=== PATIENT | male | born 1960 | race Caucasian/White ===

== ENCOUNTER 2022-11-09 10:19 | Emergency (ER) | payer MEDICAID, SELFPAY ==
[2022-11-09] VITALS (7 sets, daily range): BP systolic 134–153; BP diastolic 84–99; PULSE 72–80; RESP 16–20; TEMP 36.4; O2SAT 97–100
--- NOTE | 2022-11-09 10:45 | ED.GENADULT ---
HPI - General Adult General Chief complaint: Urogenital-Male Stated complaint: ABDOMINAL PAIN X3D Time Seen by Provider: 11/09/22 10:27 History of Present Illness HPI narrative: 62-year-old male presented the ED for evaluation of difficulty urinating. Patient states over the last 4 days he has had decreased urine output. Patient states he has not had follow-up with a physician for the last 40 years. Patient complains of difficulty urinating with suprapubic abdominal pain. Patient denies any chest pain shortness of breath nausea vomiting diarrhea. Related Data Allergies Allergy/AdvReac Type Severity Reaction Status Date / Time No Known Allergies Allergy Verified 11/09/22 10:29 Review of Systems Review of Systems: All systems reviewed & are unremarkable except as noted in HPI and below Exam Narrative: APPEARANCE: Well appearing, no pain, no distress, well-nourished. HEAD: normocephalic, atraumatic. EYES: PERRLA/EOMI, conjunctivae clear. NOSE: Normal no drainage EARS:TMS clear with good light reflex. THROAT: Pharynx clear, no exudate. NECK: Supple. No adenopathy, no masses. RESPIRATORY: Airway patent, respirations nonlabored. Clear to auscultation bilaterally, no rales, rhonchi, wheezing. CARDIOVASCULAR: Regular rate and rhythm without murmurs rubs or gallops. ABDOMINAL: Suprapubic tenderness to palpation MUSCULOSKELETAL: Moves all extremities. Strength/ROM intact, No edema, No calf tenderness. NEURO: Alert. Cranial nerves II through XII intact. Grossly intact SKIN: Warm, dry. Normal Color Course Course Emergency Course: 62-year-old male to the ED for evaluation of decreased ability to urinate and increased upper pubic abdominal pressure. Patient drained approximately 2 L of urine from his indwelling Alvarado catheter. No evidence of urinary tract infection. Patient did have a creatinine of 4.4. Patient was strongly encouraged to stay for further work-up but has declined. Patient and family were aware of the risks of leaving prior to completing his medical work-up. Patient will be provided numbers to call for follow-up with urology and with a primary care physician. Patient will be started on Flomax. Patient was signed out AMA. Patient was provided follow-up with medicine and with urology. Patient was encouraged to return to the emergency department to complete his medical work-up. Vital Signs Vital signs: Vital Signs Temperature 97.6 F 11/09/22 10:28 Pulse Rate 80 11/09/22 10:28 Respiratory Rate 16 11/09/22 10:28 Blood Pressure 134/90 11/09/22 10:28 Pulse Oximetry 99 11/09/22 10:28 Oxygen Delivery Room Air 11/09/22 10:28 Temperature 97.6 F 11/09/22 10:28 Pulse Rate 72 11/09/22 12:18 Respiratory Rate 20 11/09/22 12:18 Blood Pressure 151/84 H 11/09/22 12:18 Pulse Oximetry 97 11/09/22 12:18 Oxygen Delivery Room Air 11/09/22 10:28 Medical Decision Making Vital Signs Vital Signs: Vital Signs Temperature 97.6 F 11/09/22 10:28 Pulse Rate 80 11/09/22 10:28 Respiratory Rate 16 11/09/22 10:28 Blood Pressure 134/90 11/09/22 10:28 Pulse Oximetry 99 11/09/22 10:28 Oxygen Delivery Room Air 11/09/22 10:28 Temperature 97.6 F 11/09/22 10:28 Pulse Rate 72 11/09/22 12:18 Respiratory Rate 20 11/09/22 12:18 Blood Pressure 151/84 H 11/09/22 12:18 Pulse Oximetry 97 11/09/22 12:18 Oxygen Delivery Room Air 11/09/22 10:28 Lab Data 11/09/22 10:44 11/09/22 10:44 Labs: Lab Results 11/09/22 11/09/22 Range/Units 10:43 10:44 WBC 12.2 H (4.5-10.0) K/mm3 RBC 4.75 (4.6-6.20) M/mm3 Hgb 15.5 (14.0-18.0) g/dL Hct 44.5 (42.0-52.0) % MCV 93.7 (80-100) fl MCH 32.6 (26-34) pg MCHC 34.8 (32-36) g/dl RDW 12.7 (11.5-14.5) % Plt Count 236 (150-375) k/mm3 MPV 9.3 (7.4-10.4) fl Immature Gran % (Auto) 0.3 (0-0.5) % Neut % (Auto) 77.7 H (45.5-73.1) % Lymph % (Aut
[2022-11-09 10:52] LABS: Basophils Percent Auto 0.3 % (0.2-1.2); Eosinophils Absolute Auto 0.3 K/mm3 (0-0.3); Eosinophils Percent Auto 2.1 % (0-4.4); Hematocrit 44.5 % (42.0-52.0); Hemoglobin 15.5 g/dL (14.0-18.0); Immature Granulocyte Absolute 0.04 K/mm3 (0.00-0.031); Immature Granulocyte Percent A 0.3 % (0-0.5); Lymphocytes Absolute Auto 1.47 K/mm3 (0.9-3.2); Lymphocytes Percent Auto 12.1 % (18.3-44.2); Mean Corpuscular HGB Conc 34.8 g/dl (32-36); Mean Corpuscular Hemoglobin 32.6 pg (26-34); Mean Corpuscular Volume 93.7 fl (80-100); Mean Platelet Volume 9.3 fl (7.4-10.4); Monocytes Absolute Auto 0.9 K/mm3 (0.1-0.6); Monocytes Percent Auto 7.5 % (2.6-8.5); Neutrophils Absolute Auto 9.5 K/mm3 (1.3-6.7); Neutrophils Percent Auto 77.7 % (45.5-73.1); Platelet Count Result 236 k/mm3 (150-375); Red Blood Count 4.75 M/mm3 (4.6-6.20); Red Cell Distribution Width 12.7 % (11.5-14.5); White Blood Count 12.2 K/mm3 (4.5-10.0)
[2022-11-09 10:53] LABS: Appearance Urine Clear (Clear); Bilirubin Urine Negative (Negative); Blood Urine Negative (Negative); Color Urine Yellow (Yellow); Glucose Urine UA Negative (Negative); Ketones Urine Negative (Negative); Leukocyte Esterase Ur Negative LEU/UL (Negative); Nitrate Urine Negative (Negative); Protein Urine Negative (Negative); Urobilinogen Urine 0.2 mg/dL (<2.0); pH Urine 5.5 (5.0-9.0)
[2022-11-09 10:54] LABS: Add Urine Microscopic? NO
[2022-11-09 11:06] LABS: Alanine Aminotransferase 20 U/L (6-50); Albumin Level 4.7 g/dL (3.5-5.1); Alkaline Phosphatase 78 U/L (38-126); Anion Gap 14 mmol/L (8-16); Aspartate Amino Transferase 22 U/L (17-59); Bilirubin,Total 0.9 mg/dL (0.2-1.3); Blood Urea Nitrogen 51 mg/dL (9-20); Calcium 9.3 mg/dL (8.4-10.2); Carbon Dioxide 23 mmol/L (22-30); Chloride 103 mmol/L (98-107); Estimated CRCL calculation 17 ml/min; Estimated Glomerular Filt Rate 14; Glucose 100 mg/dL (65-110); Lipase 63 U/L (23-300); Potassium 4.1 mmol/L (3.4-5.0); Sodium 140 mmol/L (137-145)
[2022-11-09] MEDS: LIDOCAINE HCL 2% GEL UROJET 10 ML PKG (11:14)
--- NOTE | 2022-11-09 12:09 | PC.NURSE ---
This RN made Dr. Patton aware of urine output. Pt resting comfortably in bed at this time. No further requests.
[2022-11-09] MEDS: TAMSULOSIN HCL 0.4 MG CAPSULE PO (12:32)
== END 2022-11-09 12:50 | disposition left against medical advice (07) ==
PROVIDERS: Emergency Provider Emergency Medicine
DX: N17.9 Acute kidney failure, unspecified (principal); R33.9 Retention of urine, unspecified
CPT/HCPCS: 36415; 51702; 80053; 81003; 83690; 85025; 99283; A9270

== ENCOUNTER → 2022-12-16 15:14 | Emergency (ER) | payer OTHER, SELFPAY | END | disposition left against medical advice (07) | LOC: ANHED 15:38 | DX: Z53.21 Procedure and treatment not carried out due to patient leaving prior to being seen by health care provider (principal) | CPT/HCPCS: 99199 ==

== ENCOUNTER 2022-12-24 14:20 | Emergency (ER) | payer OTHER, SELFPAY ==
[2022-12-24] VITALS (11 sets, daily range): BP systolic 143–181; BP diastolic 75–105; PULSE 60–83; RESP 16–18; TEMP 36.7; O2SAT 91–100
--- NOTE | ~2022-12-24 | CT_ITS ---
EXAMINATION: CT abdomen pelvis w con INDICATION: Abdominal pain TECHNIQUE: Computed tomographic images of the abdomen and pelvis were obtained after the administrati on of 100 cc of Omnipaque 350 intravenous contrast. The dose-length product (DLP) was 651.29 mGy-cm. Automated exposure control and iterative reconstruction technique were employed. COMPARISON: None available FINDINGS: Minimal dependent atelectasis is present in the lung bases. The heart size is normal. There is a small sliding hiatal hernia. Punctate calcifications in an otherwise normal spleen likely repre sent healed granulomatous disease. The liver, pancreas, gallbladder, and adrenal glands are normal. H ypoattenuating lesions in the kidneys, measuring up to 4 mm on the left, are too small to characteriz e but likely represent cysts. The bladder is decompressed by Alvarado catheter. There is a small amount of hyperattenuating material in the bladder near the left ureterovesicular junction. A small volume o f ascites is present at the pelvis. No pathologically enlarged abdominal or pelvic lymph nodes are id entified. No free intraperitoneal gas or evidence of bowel obstruction. Colonic diverticulosis is pre sent without evidence of diverticulitis. There is wall thickening of the urinary bladder with mild bowers rrounding fat stranding. There is moderate lumbar spondylosis. IMPRESSION: 1. Wall thickening of the urinary bladder with surrounding fat stranding suggestive of cystitis. 2. Hyperattenuating material in the bladder near the left ureterovesicular junction which could refle ct small bladder stones. Reviewed, dictated and finalized at location L. IMPRESSION: 1. Wall thickening of the urinary bladder with surrounding fat stranding sugges tive of cystitis. 2. Hyperattenuating material in the bladder near the left ureterovesicular junc tion which could reflect small bladder stones.
--- NOTE | 2022-12-24 14:45 | PC.NURSE ---
Pt came in with catheter in place, states it has been in place for 1 month because he has worthless doctors . Catheter was removed in ED intact and a new one was placed.
[2022-12-24 15:09] LABS: Appearance Urine Turbid (Clear); Bacteria Urine 4+ /hpf; Bilirubin Urine Negative (Negative); Blood Urine 3+ (Negative); Color Urine Yellow (Yellow); Glucose Urine UA Negative (Negative); Ketones Urine Negative (Negative); Leukocyte Esterase Ur 2+ LEU/UL (Negative); Nitrate Urine Positive (Negative); Non Pathogenic Casts 0-2; Protein Urine 1+ mg/dL (Negative); RBC Urine 51-100 /hpf (0-2); Specific Grav Ur 1.023 (1.001-1.035); Squamous Epithelial Cell Urine None seen /hpf (Few); WBC Urine 51-100 /hpf
[2022-12-24 15:17] LABS: Add Urine Microscopic? YES
[2022-12-24 15:24] LABS: Basophils Percent Auto 0.3 % (0.2-1.2); Eosinophils Absolute Auto 0.1 K/mm3 (0-0.3); Eosinophils Percent Auto 0.5 % (0-4.4); Hematocrit 43.3 % (42.0-52.0); Immature Granulocyte Absolute 0.04 K/mm3 (0.00-0.031); Immature Granulocyte Percent A 0.4 % (0-0.5); Lymphocytes Absolute Auto 1.19 K/mm3 (0.9-3.2); Lymphocytes Percent Auto 10.8 % (18.3-44.2); Mean Corpuscular HGB Conc 34.6 g/dl (32-36); Mean Corpuscular Hemoglobin 32.1 pg (26-34); Mean Corpuscular Volume 92.7 fl (80-100); Mean Platelet Volume 9.4 fl (7.4-10.4); Monocytes Absolute Auto 0.6 K/mm3 (0.1-0.6); Monocytes Percent Auto 5.4 % (2.6-8.5); Neutrophils Absolute Auto 9.1 K/mm3 (1.3-6.7); Neutrophils Percent Auto 82.6 % (45.5-73.1); Platelet Count Result 201 k/mm3 (150-375); Red Blood Count 4.67 M/mm3 (4.6-6.20); Red Cell Distribution Width 12.9 % (11.5-14.5)
[2022-12-24 15:34] LABS: Alanine Aminotransferase 23 U/L (6-50); Albumin Level 4.8 g/dL (3.5-5.1); Alkaline Phosphatase 83 U/L (38-126); Anion Gap 10 mmol/L (8-16); Aspartate Amino Transferase 24 U/L (17-59); Bilirubin,Total 0.7 mg/dL (0.2-1.3); Blood Urea Nitrogen 24 mg/dL (9-20); Calcium 9.2 mg/dL (8.4-10.2); Carbon Dioxide 24 mmol/L (22-30); Chloride 109 mmol/L (98-107); Estimated CRCL calculation 81 ml/min; Estimated Glomerular Filt Rate > 60; Glucose 95 mg/dL (65-110); Potassium 3.9 mmol/L (3.4-5.0); Sodium 143 mmol/L (137-145)
--- NOTE | 2022-12-24 15:44 | ED.GENADULT ---
HPI - General Adult General Chief complaint: Urogenital-Male Stated complaint: URINARY RETENTION HAS ALVARADO Time Seen by Provider: 12/24/22 14:34 History of Present Illness HPI narrative: Gideon Blue is a 62 y/o male who presents today with complaints of not being able to urinate from his urinary catheter that started today. He states that he was here on 11/09 with urinary retention - a Alvarado catheter was placed, they tried to admit him but he went home. He followed up with urology out pt and was trialed without a Alvarado and failed again and had it replaced about 3-4 weeks ago. Today he woke up and noticed he wasn't having any urinary output and started to have severe abdominal pain and left work and came here. The RN removed the Alvarado and immediately had a large amount of urine sprayed out of penis and then 1000 mls of urine was immediately out in to the new Alvarado and now with some notable hematuria. Patient reports feeling improved after the new Alvarado was placed. Denies any recent fever/chills. Related Data Allergies Allergy/AdvReac Type Severity Reaction Status Date / Time No Known Allergies Allergy Verified 12/24/22 14:50 Review of Systems Review of Systems: CONSTITUTIONAL: Denies fever, chills, or sweats. EYES: Denies visual changes, redness, or discharge. ENT: Denies rhinorrhea, congestion, sore throat, or otalgia. CARDIOVASCULAR: Denies chest pain, palpitations, or edema. RESPIRATORY: Denies cough or dyspnea. GASTROINTESTINAL: reports lower abdominal pain, denies nausea, vomiting, or diarrhea. GENITOURINARY: complains of urinary retention through his urinary catheter SKIN: Denies rash or itching. MUSCULOSKELETAL: Denies back pain, joint pain, or myalgia. NEUROLOGIC: Denies headache, numbness, dizziness, or weakness. PSYCHIATRIC: Denies anxiety or depression. Exam Narrative: GENERAL: Well-appearing, well-nourished, and in no acute distress. HEAD: Normocephalic, atraumatic. EYES: PERRLA and EOMI. ENT: Nares clear, no rhinorrhea or epistaxis. Mucous membranes moist. Oropharynx without tonsillar hypertrophy exudate or other lesions. NECK: Supple. No adenopathy or masses. No carotid bruits or JVD CHEST: Clear to auscultation. No respiratory distress. No wheezes rales or rhonchi HEART: Regular rate and rhythm. No murmur heard. Normal peripheral pulses. ABDOMEN: Soft, nondistended, normal active bowel sounds. EXTREMITIES: Normal range of motion. No edema. SKIN: Warm, dry, no rash. NEURO: No focal deficits. Alert and oriented x3. PSYCH: Normal mood and affect. Course Vital Signs Vital signs: Vital Signs Temperature 36.7 C 12/24/22 14:23 Pulse Rate 83 12/24/22 14:23 Respiratory Rate 18 12/24/22 14:23 Blood Pressure 160/90 H 12/24/22 14:23 Pulse Oximetry 99 12/24/22 14:23 Oxygen Delivery Room Air 12/24/22 14:23 Temperature 36.7 C 12/24/22 14:23 Pulse Rate 66 12/24/22 14:55 Respiratory Rate 18 12/24/22 14:55 Blood Pressure 170/105 H 12/24/22 15:01 Pulse Oximetry 97 12/24/22 15:30 Oxygen Delivery Room Air 12/24/22 14:23 Medical Decision Making MDM Narrative Medical decision making narrative: On exam pt is more comfortable now that his Alvarado was changed out. He denies any fever/chills/ Plan to check labs/ UA/ CT of abdomen pelvis and then plan to consult with urology for further guidance of care. Urine is showing an acute infection / labs are stable CT is showing cystitis with possible stones. Talked with urologist Dr. Goodman who agrees that since pt has a flowing catheter that is working now he can be d/c home and he recommends d/c with a fluoroquinolone antibiotics pending the urine culture and he can follow up out pt with a urologist. Updated pt on this plan of care and he states that he will follow up with [facility] with urology. Patient still reports feeling much better and is ready to be d/c home. Differential Diagnosis Differential D
[2022-12-24] MEDS: SODIUM CHLORIDE 0.9% IV 1,000 ML 999 ML IV CONT (16:13)
[2022-12-24] MEDS: KETOROLAC 30 MG/ML VIAL (*BKC) IV PUSH (16:57)
== END 2022-12-24 18:39 | disposition home or self-care (01) ==
PROVIDERS: Emergency Provider Nurse Practitioner Family; PCP Emergency Medicine
DX: N30.01 Acute cystitis with hematuria (principal); R33.9 Retention of urine, unspecified
CPT/HCPCS: 36415; 51702; 74177; 80053; 81001; 85025; 87086; 87088; 96361; 96365; 96375; 99284; J0696; J1885; J7030; Q9967

== ENCOUNTER 2023-02-09 15:50 | Emergency (ER) | payer OTHER, SELFPAY ==
[2023-02-09 16:13] VITALS: BP 144/87; PULSE 64; RESP 99; TEMP 36.3
--- NOTE | 2023-02-09 19:52 | PC.NURSE ---
Previous RN documented 99RR on pt. This RN cannot edit documentation. Pt RR are 20 at this time.
--- NOTE | 2023-02-09 19:59 | ED.MALEGU ---
HPI - Male Genitourinary General Chief complaint: Urogenital-Male Stated complaint: catheter problems Time Seen by Provider: 02/09/23 19:25 Source: patient Mode of arrival: ambulatory Limitations: no limitations History of Present Illness HPI Narrative: This is a 62 year old male that presents to the ER for hematuria. Ongoing over the last 3 days. Reports recent trouble with urinary retention for which he has had a Alvarado catheter the last several months. He did see a urologist for this, Dr. Goodman. He was supposed to have an additional follow-up appointment, but was unable to make it. He has had intermittent hematuria with this, but this episode has lasted for a longer than usual which prompted him to be seen. Denies fever, vomiting or flank pain. Related Data Allergies Allergy/AdvReac Type Severity Reaction Status Date / Time No Known Allergies Allergy Verified 12/24/22 14:50 Review of Systems Review of Systems: CONSTITUTIONAL: Denies fever GASTROINTESTINAL: Denies abdominal pain, nausea, vomiting GENITOURINARY: Reports hematuria. All systems reviewed & are unremarkable except as noted in HPI and below PMFSH Past Medical History Medical History (Updated 02/09/23 @ 21:52 by Nena Peña PA-C) No active medical problems Social History Social History (Updated 02/09/23 @ 20:04 by Nena Peña PA-C) Substance use: never Exam Narrative: GENERAL: Well-appearing, well-nourished, and in no acute distress. HEAD: Normocephalic, atraumatic. EYES: EOMI. CHEST: Clear to auscultation. No respiratory distress. No wheezes rales or rhonchi HEART: Regular rate and rhythm. No murmur heard. Normal peripheral pulses. ABDOMEN: Soft, nontender, nondistended, normal active bowel sounds. No CVA tenderness EXTREMITIES: Normal range of motion. No edema. SKIN: Warm, dry, no rash. NEURO: No focal deficits. Alert and oriented x3. PSYCH: Normal mood and affect Course Course Emergency Course: patient and family updated on workup and agree with plan of care Vital Signs Vital signs: Vital Signs Temperature 97.3 F L 02/09/23 16:13 Pulse Rate 64 02/09/23 16:13 Respiratory Rate 99 H 02/09/23 16:13 Blood Pressure 144/87 H 02/09/23 16:13 Temperature 97.3 F L 02/09/23 16:13 Pulse Rate 64 02/09/23 21:04 Respiratory Rate 20 02/09/23 21:04 Blood Pressure 146/85 H 02/09/23 21:04 Pulse Oximetry 98 02/09/23 21:04 MDM - Male Genitourinary MDM Narrative Medical decision making narrative: Patient presents to the emergency department for hematuria ongoing over the last couple of days. Has recently been seeing Urology for urinary retention and has had a Alvarado catheter. He is afebrile and nontoxic appearing. His vitals are stable. CBC without leukocytosis. Metabolic panel with normal kidney function. UA is consistent with infection. This will be sent for culture. Patient given dose of IV antibiotics. After replacing patient's Alvarado catheter his urine did start to drain well without tasha hematuria. He has an appointment to follow-up with his urologist this week. He will be discharged on oral antibiotics. He was given warnings to return to the ER Differential Diagnosis Differential diagnosis: Likely urinary tract infection and other (hematuria) Lab Data Attestation: I reviewed the patient's lab results. 02/09/23 20:24 02/09/23 20:24 Labs: Lab Results 02/09/23 Range/Units 20:24 WBC 8.2 (4.5-10.0) K/mm3 RBC 4.68 (4.6-6.20) M/mm3 Hgb 14.8 (14.0-18.0) g/dL Hct 44.2 (42.0-52.0) % MCV 94.4 (80-100) fl MCH 31.6 (26-34) pg MCHC 33.5 (32-36) g/dl RDW 13.2 (11.5-14.5) % Plt Count 245 (150-375) k/mm3 MPV 9.6 (7.4-10.4) fl Immature Gran % (Auto) 0.5 (0-0.5) % Neut % (Auto) 67.9 (45.5-73.1) % Lymph % (Auto) 22.8 (18.3-44.2) % [place] % (Auto) 6.7 (2.6-8.5) % Eos % (Auto) 1.7 (0-4.4) % Baso % (Auto) 0.4 (0.2-1.2)
[2023-02-09 20:31] LABS: Basophils Percent Auto 0.4 % (0.2-1.2); Eosinophils Absolute Auto 0.1 K/mm3 (0-0.3); Eosinophils Percent Auto 1.7 % (0-4.4); Hematocrit 44.2 % (42.0-52.0); Hemoglobin 14.8 g/dL (14.0-18.0); Immature Granulocyte Absolute 0.04 K/mm3 (0.00-0.031); Immature Granulocyte Percent A 0.5 % (0-0.5); Lymphocytes Absolute Auto 1.86 K/mm3 (0.9-3.2); Lymphocytes Percent Auto 22.8 % (18.3-44.2); Mean Corpuscular HGB Conc 33.5 g/dl (32-36); Mean Corpuscular Hemoglobin 31.6 pg (26-34); Mean Corpuscular Volume 94.4 fl (80-100); Mean Platelet Volume 9.6 fl (7.4-10.4); Monocytes Absolute Auto 0.6 K/mm3 (0.1-0.6); Monocytes Percent Auto 6.7 % (2.6-8.5); Neutrophils Absolute Auto 5.5 K/mm3 (1.3-6.7); Neutrophils Percent Auto 67.9 % (45.5-73.1); Platelet Count Result 245 k/mm3 (150-375); Red Blood Count 4.68 M/mm3 (4.6-6.20); Red Cell Distribution Width 13.2 % (11.5-14.5); White Blood Count 8.2 K/mm3 (4.5-10.0)
[2023-02-09 20:43] LABS: Alanine Aminotransferase 18 U/L (6-50); Albumin Level 4.7 g/dL (3.5-5.1); Alkaline Phosphatase 79 U/L (38-126); Anion Gap 9 mmol/L (8-16); Aspartate Amino Transferase 20 U/L (17-59); Blood Urea Nitrogen 15 mg/dL (9-20); Calcium 9.4 mg/dL (8.4-10.2); Carbon Dioxide 29 mmol/L (22-30); Chloride 104 mmol/L (98-107); Estimated CRCL calculation 81 ml/min; Estimated Glomerular Filt Rate > 60; Glucose 96 mg/dL (65-110); Sodium 142 mmol/L (137-145)
[2023-02-09 20:46] LABS: Bacteria Urine 4+ /hpf; Calcium Oxalate Crystals Urine Present /hpf; Need Manual Microscopic Reviewed; Non Pathogenic Casts >20; RBC Urine >100 /hpf (0-2); Squamous Epithelial Cell Urine None seen /hpf (Few); WBC Urine >100 /hpf
[2023-02-09 20:47] LABS: Appearance Urine Turbid (Clear); Bilirubin Urine 1+ (Negative); Blood Urine 3+ (Negative); Color Urine Orange (Yellow); Glucose Urine UA Negative (Negative); Ketones Urine Negative (Negative); Leukocyte Esterase Ur 2+ LEU/UL (Negative); Nitrate Urine Positive (Negative); Protein Urine 3+ mg/dL (Negative); Specific Grav Ur 1.024 (1.001-1.035)
[2023-02-09 20:49] LABS: Add Urine Microscopic? YES
[2023-02-09 21:04] VITALS: BP 146/85; PULSE 64; RESP 20; O2SAT 98
== END 2023-02-09 22:28 | disposition home or self-care (01) ==
PROVIDERS: Emergency Provider Physician Assistant; PCP Emergency Medicine
DX: N39.0 Urinary tract infection, site not specified (principal)
CPT/HCPCS: 36415; 51700; 80053; 81001; 85025; 87077; 87086; 87088; 87186; 96365; 99284; J0696

== ENCOUNTER 2024-03-19 12:56 | Emergency (ER) | payer SELFPAY ==
--- NOTE | ~2024-03-19 | XR_ITS ---
XR wrist RT min 3V 03/19/2024 13:20 Indication: Right wrist pain after recent fall Procedure: 4 views right wrist Comparison: No prior studies for comparison. Findings: There is a comminuted intra-articular fracture of the distal radius. There is a small curvi linear ossific fragment dorsally which is minimally displaced. Moderate dorsal soft tissue swelling. No foreign bodies. No definite carpal fractures are seen. Impression: 1: Mildly displaced intra-articular comminuted fracture distal aspect of the radius. Reviewed, dictated and finalized at location B. NESS SERVICES REPRESENTATIVE Impression: 1: Mildly displaced intra-articular comminuted fracture distal aspect of the ra dius.
--- NOTE | 2024-03-19 13:00 | ED.EXTPRO ---
HPI - Extremity Problem General Chief complaint: Extremity Injury, Upper Stated complaint: right arm pain, injury Time Seen by Provider: 03/19/24 13:11 Source: patient, RN notes reviewed and old records reviewed Mode of arrival: ambulatory Limitations: no limitations History of Present Illness HPI Narrative: 63-year-old male presents to the [facility] with right wrist pain for 2 days. Reports that he fell on it 2 days ago, states that he tripped fell landing with his wrist against a wood board or frame. Denies hitting head. No loss of consciousness. Onset (ago): day(s) (2) Related Data Home Medications ?Medication ?Instructions ?Recorded ?Confirmed ?Last Taken ?Type No Home Medications 03/19/24 03/19/24 Unknown History Allergies Allergy/AdvReac Type Severity Reaction Status Date / Time No Known Allergies Allergy Verified 03/19/24 13:11 Review of Systems Review of Systems: All systems reviewed & are unremarkable except as noted in HPI and below Constitutional: Constitutional: Reports no additional constitutional complaints ENT: Reports system reviewed and no additional complaints, except as documented Cardiovascular: Cardiovascular: Reports no additional cardiovascular complaints, Denies chest pain and Denies dyspnea Respiratory: Respiratory: Reports no additional respiratory complaints, Denies chest congestion, Denies cough and Denies dyspnea Gastrointestinal: Gastrointestinal: Reports no additional gastrointestinal complaints, Denies abdominal pain, Denies nausea and Denies vomiting Musculoskeletal: Musculoskeletal: Reports as per HPI, Reports arthralgias (right wrist) and Reports joint swelling Integumentary/Breasts: Skin/Breast: Reports system reviewed and no additional complaints, except as docu PMFSH Past Medical History Medical History No active medical problems Social History Social History Substance use: never Comments At the time of my signature, I reviewed and agree with the nursing past medical, surgical, social, and family history. There is no relevant family history pertinent to the patient complaint. Exam Const: General: cooperative, no acute distress, well developed, alert, ill appearing chronically, tired appearing, uncomfortable and well nourished Nutritional Appearance: well nourished Orientation/consciousness: patient oriented x3 Limitations: no limitations HENMT: Head: normal to inspection Face/Nose/Sinus: normal facial exam and face symmetric Eyes: General: appearance normal, both eyes and all related structures Neck: Neck: normal visual inspection and full ROM Chest: Chest palpation & inspection: normal inspection of the chest Resp: Effort & Inspection: normal respiratory effort and able to speak in complete sentences Cardio: Rate: regular rate Skin: General skin exam: normal color and no rashes or lesions noted Lesions: no lesions Rashes: no rashes Wounds: no wounds Neuro: General: patient oriented x3, gait normal, tone normal, moves all extremities and no meningeal signs Cognition (Neuro): normal cognition Speech: normal speech Gait exam (Neuro): Normal gait present Extrem: General: normal to inspection, full ROM, capillary refill normal and normal gait Right upper extremity: wrist tenderness of the distal radius, swelling of the dorsal wrist, abnormal ROM pain with active ROM during and ecchymosis; no unusual warmth and no abrasions and Extremity exam: right hand neuromotor exam normal thumb opposition normal, thumb IP flexion normal, thumb ADduction normal and fingers 2-5 ABduction normal, neurosensory exam normal (Sensation intact in all 5 fingers), vascular exam radial pulse present and normal capillary refill and normal ROM of fingers Psych: Appearance: grossly normal and well kempt Mental Status: mental status grossly normal Speech and movement: Normal speech and movement present and Clear speech present Affect: normal affect Attitude: cooperative Course Course Level of Care: Express Care Visit Vital Signs Vital signs: Vital Signs Temperature 96.7 F L 03/19/24 13:20 Pulse Rate 68 03/19/24 13:20 Respiratory Rate 16 03/19/24 13:20 Blood Pressure 132/83 03/19/24 13:20 Pulse Oximetry 98 03/19/24 13:20 Oxygen Delivery Room Air 03/19/24 13:20 Temperature 96.7 F L 03/19/24 13:20 Pulse Rate 68 03/19/24 13:20 Respiratory Rate 16 03/19/24 13:20 Blood Pressure 132/83 03/19/24 13:20 Pulse Oximetry 98 03/19/24 13:20 Oxygen Delivery Room Air 03/19/24 13:20 Reviewed MDM - Extremity (Nontraumatic) MDM Narrative Medical decision making narrative: Patient sitting in exam room. Nontoxic, vitals stable. Patient presents with 2 day history of wrist pain. X-ray shows fracture. Patient appropriate for outpatient treatment with close follow-up with ortho. Splint and sling applied by nurse and tech Patient appropriate for outpatient treatment Discharge instructions reviewed with patient, as well as provided in writing per nursing staff. The instructions also include specific and strict return/GO TO THE ER as well as f/u information. All questions have been answered, and the patient deny any further questions with discharge and discharge plan. Some parts of this dictation were generated by voice recognition software and may contain typographical and/or grammatical inaccuracies. Differential Diagnosis Differential diagnosis: Likely other (Wrist fracture, wrist contusion, wrist sprain) Imaging Data Radiologist's impression: XR wrist RT min 3V 03/19/2024 13:20 Indication: Right wrist pain after recent fall Procedure: 4 views right wrist Comparison: No prior studies for comparison. Findings: There is a comminuted intra-articular fracture of the distal radius. There is a small curvilinear ossific fragment dorsally which is minimally displaced. Moderate dorsal soft tissue swelling. No foreign bodies. No definite carpal fractures are seen. Impression: 1: Mildly displaced intra-articular comminuted fracture distal aspect of the radius. Critical Care Time Critical Care Time Critical Care Time: No Discharge Plan Discharge Clinical Impression: Distal radial fracture Qualifiers: Encounter type: initial encounter Fracture type: closed Fracture morphology: unspecified fracture morphology Laterality: right Qualified Code(s): S52.501A - Unspecified fracture of the lower end of right radius, initial encounter for closed fracture Patient Disposition: Home, Self-Care Condition: Stable Instructions: Wrist Fracture in Adults (ED), How to Use a Sling (ED), Splint Care (ED) Additional Instructions: Rest, ice and elevate every 2-3 hours for 15-20 minutes while awake Take Tylenol alternating with ibuprofen as needed for pain Call and make an appointment with orthopedic provider. Follow-up with your primary care provider For new or worsening symptoms go directly to the emergency room Patient Language: [place] Prescriptions: No Action No Home Medications Follow-up/Referrals: Toni Escobar MD [Physician] - 3 Days (Radial fracture [facility] follow-up) Andrea Bowling MD [Primary Care Provider] - 1 Week ([facility] follow-up) Time of Disposition: 13:49
[2024-03-19 13:20] VITALS: BP 132/83; PULSE 68; RESP 16; TEMP 35.9; O2SAT 98
== END 2024-03-19 14:15 | disposition home or self-care (01) ==
PROVIDERS: Emergency Provider Nurse Practitioner; PCP Emergency Medicine
DX: S52.501A Unspecified fracture of the lower end of right radius, initial encounter for closed fracture (principal); W01.0XXA Fall on same level from slipping, tripping and stumbling without subsequent striking against object, initial encounter
CPT/HCPCS: 29125; 73110; 99214; A4565; G0463

== ENCOUNTER 2024-08-11 09:42 | Outpatient (CLI) | payer OTHER, SELFPAY ==
--- NOTE | ~2024-08-11 | XR_ITS ---
Lumbosacral Spine: AP and lateral views Clinical History: Pain Findings: The normal lordotic curve is maintained. The vertebral bodies and posterior elements are i ntact. The intervertebral disc spaces are preserved. The sacroiliac joints are normally outlined. Impression: No significant abnormality. Reviewed, dictated and finalized at [facility]. Impression: No significant abnormality.
--- OUTSIDE RECORDS SUMMARY | 2024-08-11 10:20 | XMS_ITS | Clinical Summary ---
Author Organization [facility] Address [address] [place] [id number] Care Team Providers Care Hvac Service Tech Name Role Phone Andrea Bowling MD Primary Care Provider [phone] Medications tamsulosin (FLOMAX) 0.4 mg extended release capsule Take 2 capsules (0.8 mg total) by mouth daily 180 capsule 3 02/21/2023 Active Active Problems Problem Noted Date Diagnosed Date Retention of urine 02/21/2023 Social History Tobacco Use Types Packs/Day Years Used Date Smoking Tobacco: Unknown Tobacco Cessation:Counseling Given: Not Answered Personal Safety Answer Date Recorded Getting School Help Needed Not on file 03/18 Sex and Gender Information Value Date Recorded Sex Assigned at Not on file Legal Sex Male 1:39 PM CDT Gender Identity Not on file Sexual Orientation Not on file Obstetrics History Plan of Treatment Health Maintenance Due Date Last Done Comments Colon Cancer Screening-Colonoscopy 1960 Depression Screening 1960 Hepatitis C Screening 1960 Prostate Cancer Screening-PSA 1961 DTaP/Tdap/Td Vaccine (1 - Tdap) 1972 Hepatitis B Screening 10/02/1979 Regular Well Visit/Exam 18-64 10/02/1979 Zoster Vaccine (1 of 2) 10/02/2011 Influenza Vaccine (Season Ended) 2024 Pneumococcal vaccine <65 Aged Out No longer eligible based on patient's age to complete this topic Insurance [facility] Care Teams Hvac Service Tech Relationship Specialty Start Date End Date Andrea Bowling MD PCP - General Emergency Medicine 12/25/22
--- OUTSIDE RECORDS SUMMARY | 2024-08-11 10:20 | XMS_ITS | Referral Summary ---
Author Organization [facility] Address [address] [place] [id number] Care Team Providers Care Aircraft Armorer Name Role Phone Andrea Bowling MD Primary Care Provider [phone] Medications tamsulosin (FLOMAX) 0.4 mg extended release [...] on file Sexual Orientation Not on file Plan of Treatment Not on file Insurance [facility] Care Teams Aircraft Armorer Relationship Specialty Start Date End Date Andrea Bowling MD PCP - General Emergency Medicine 12/25/22
--- OUTSIDE RECORDS SUMMARY | 2024-08-11 10:20 | XMS_ITS | Clinical Summary ---
Author Organization [facility] Address [address] [place] [address] Phone Care Team Providers Care Shank Turner Name Role Phone Provider, None Primary Care Provider Unavailabl e Allergies No known active allergies Medications triamcinolone (ARISTOCORT) 0.5 % Cream Apply 1 Applicator 2 times daily. Application Site: L forearm 30 g 9 Active Social History Tobacco Use Types Packs/Day Years Used Date Smoking Tobacco: Never Smokeless Tobacco: Current Chew Alcohol Use Standard Drinks/Week Comments Not Currently 0 (1 standard drink = 0.6 oz pur e alcohol) Sex and Gender Information Value Date Recorded Sex Assigned at Not on file Legal Sex Male 1:53 PM CDT Gender Identity Not on file Sexual Orientation Not on file Last Filed Vital Signs Vital Sign Reading Time Taken Comments Blood Pressure 172/93 12/24/2022 12:26 PM CDT Pulse 69 12/24/2022 12:26 PM CDT Temperature 36.2 C (97.2 F) 12/24/2022 12:26 PM CDT Respiratory Rate 19 12/24/2022 12:26 PM CDT Oxygen Saturation 98% 12/24/2022 12:26 PM CDT Inhaled Oxygen Concentration - - Weight 86.2 kg (190 lb) 12/24/2022 12:26 PM CDT Height 180.3 cm (5' 11 ) 12/24/2022 12:26 PM CDT Body Mass Index 26.5 12/24/2022 12:26 PM CDT Plan of Treatment Health Maintenance Due Date Last Done Comments Hepatitis C Virus (HCV) Screening 1961 TdaP Immunization 1961 Colonoscopy 2006 Colorectal Cancer Screening 2006 Cologuard 10/02/2011 Immunochemical Fecal Occult Blood 10/02/2011 Pneumococcal Immunization (5 0+ years) (1 of 1 - PCV) 10/02/2011 Zoster Immunization (1 of 2) 10/02/2011 PSA Discussion 2016 Influenza Immunization (#1) 2023 SARS-COV-2 Immunization (1 - 2023-25 season) 2023 Respiratory Syncytial Virus (RSV) Immunization (Adult) (1 - 1-dose 75+ series) 2036 Hepatitis B Immunization Aged Out No longer eligible based on patient's age to complete this topic Meningococcal Immunization (ACWY) Aged Out No longer eligible based on patient's age to complete this topic Rotavirus Immunization Aged Out No lo nger eligible based on patient's age to complete this topic Insurance MEDICAID AETNA [facility] Care Teams Shank Turner Relationship Specialty Start Date End Date Provider, None [place] PCP - General 06/15/18
--- OUTSIDE RECORDS SUMMARY | 2024-08-11 10:20 | XMS_ITS | CONTINUITY OF CARE DOCUMENT ---
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 [employer] New patient consultation active Milagros herbert [employer] Hypertension active Milagros De Los Santosri [employer]SEMBLER [employer] Hyperlipidemia active Milagros Ye [employer] Erectile dysfunction active Milagros De Los Santosri [employer]SEMBLER [employer] Screening active Milagros Ye [employer]SEMBLER [employer] ENCOUNTERS Date Type Provider Location Encounter Diag nosis 11/04 - 11/13 In-person encounter Office Visit Dyllan Tate MD [facility] 08/24 - 08/27 In-person encounter Office Visit Dyllan Tate MD [facility] 07/24 - 07/29 In-person encounter Office Visit Dyllan Tate MD [facility] Cardiology examinationNew patient consultationHypertensionHyperlipidemiaErectile dysfunctionScreening VITAL SIGNS Date Observation Value Provider Body Mass Index (Ratio) 30.40 kg/m2 Scott Mendez blood pressure, diastolic 80 mm[Hg] Supriya Rodriguez blood pressure, systolic 132 mm[Hg] Irene pulse rate 78 /min Barby Tony respiratory rate E&M 16 /min Barby Tony oxygen saturation, oximetry 97 % Barby Tony blood pressure, diastolic 80 mm[Hg] Va lermagalys Tony blood pressure, systolic 132 mm[Hg] Christina prem Tony blood pressure, cuff size large Va lerie Tony weight E&M 218 [lb_av] Barby Tony height E&M 71 [in_i] Barby Tony Body Mass Index (Ratio) 29.29 kg/m2 Sung Tate MD blood pressure, diastolic 104 mm[Hg] Supriya nkic blood pressure, systolic 151 mm[Hg] Irene blood pressure, cuff size regular rret blood pressure, diastolic 104 mm[Hg] Jerald rret blood pressure, systolic 151 mm[Hg] Jar ret pulse rate 62 /min Zuhair y oxygen saturation, oximetry 95 % Zuhair respiratory rate E&M 14 /min Zuhair weight E&M 210 [lb_av] Zuhair er y height E&M 71 [in_i] Zuhair erda y Body Mass Index (Ratio) 28.59 kg/m2 Sung Tate MD blood pressure, diastolic 101 mm[Hg] Supriya nkLogic blood pressure, systolic 151 mm[Hg] Irene weight E&M 205 [lb_av] Charley Rushin g height E&M 71 [in_i] Charley Rushin g pulse rate 70 /min Raymond Shaw oxygen saturation, oximetry 97 % Raymond Shaw respiratory rate E&M 16 /min Raymond [facility] blood pressure, cuff size regular Do chirag Shaw blood pressure, diastolic 101 mm[Hg] Do chirag Shaw blood pressure, systolic 151 mm[Hg] Hood Shaw weight E&M 205 [lb_av] Raymond [facility] height E&M 71 [in_i] Raymond Shaw ALLERGIES No Known Drug Allergies HISTORY OF MEDICATION USE Medication Status Instructions Dates Provider Indications Com ments ergocalciferol (vitamin D2) 1,250 mcg (50,000 unit) capsule active TAKE 1 CAPSULE BY MOUTH WEEKLY Jennifer Ventimiglia MEDICAL CLAIMS ASSISTANT losartan-hydrochl orothiazide 50-12.5 mg tablet active TAKE 1 TABLET BY MOUTH EVERY DAY Jennifer Ventimiglia MEDICAL CLAIMS ASSISTANT simvastatin 20 mg tablet active TAKE 1 TABLET BY MOUTH EVERY DAY Jennifer Ventimiglia MEDICAL CLAIMS ASSISTANT tadalafil 5 mg tablet active Take 1 tablet by mouth daily. Jennifer Ventimiglia MEDICAL CLAIMS ASSISTANT losartan-hydrochl orothiazide 50-12.5 mg tablet completed Take 1 tablet by mouth once a day - Jennifer Ventimiglia MEDICAL CLAIMS ASSISTANT tamsulosin 0.4 mg capsule active [facility] nitrofurantoin monohyd/m-cryst 100 mg capsule completed - Jennifer Ventimiglia MEDICAL CLAIMS ASSISTANT tadalafil 5 mg tablet completed TAKE 1 TABLET BY MOUTH ONCE DAILY - Jennifer Ventimiglia MEDICAL CLAIMS ASSISTANT simvastatin 20 mg tablet completed - Jennifer Ventimiglia MEDICAL CLAIMS ASSISTANT ergocalciferol (vitamin D2) 1,250 mcg (50,000 unit) capsule completed - Jennifer Ventimiglia MEDICAL CLAIMS ASSISTANT losartan 25 mg tablet completed - Dyllan Tate MD SOCIAL HISTORY Date Observation Value Provider personal history of marijuana use no Jennifer Ventimiglia MEDICAL CLAIMS ASSISTANT drug use no Jennifer Murrayg rocky [facility] alcohol use, average drinks per day social Jennifer Murrayglia [facility] alcohol use yes Jennifer Murrayg rocky [facility] smoking status Never smoker Jennifer hilton [facility] number of grandchildren Dyllan Tate MD personal history of marijuana use no Dyllan Tate MD drug use no Dyllan billings MD alcohol use, average drinks per day social Dyllan Tate MD alcohol use yes Dyllan billings MD smoking status Never smoker Dyllan willis MD personal history of marijuana use no Milagros Ye NP drug use no Milagros Ye NP alcohol use, average drinks per day social Milagros Ye [employer] alcohol use yes Mandieisauro Ye NP smoking status Never smoker Milagros Valverde i [employer]SEM[employer] INSURANCE PROVIDERS Payer name Policy type / Coverage type [facility] democrat ID [place] MEDICA[place] Medicaid [id number] ADVANCE DIRECTIVES Name Date DISCUSSED - NO DECISION MADE TREATMENT PLAN Date Name Performer Cardiology Jennifer Dorantes ia [facility] Cardiology:LDL 178 l ast labs T his visit has been a part of the consistent, comprehensive, and ongoing management of the chronic medical condition(s) listed above for the patient. His updated medication list for this problem includes: Simvastatin 20 Mg Tablet (Simvastatin) Jennifer Cowart [facility] Cardiology:BP today 132/80 l ast OV 151/104 T his visit has been a part of the consistent, comprehensive, and ongoing management of the chronic medical condition(s) listed above for the patient. EATS PROCESSED FOOD/CANNED DUE TO THE FINANCIAL CONSTRAINTS C ONTINUE W/ CURRENT DOSAGE H is updated medication list for this problem includes: Losartan-hydrochlorothiazide 50-12.5 Mg Tablet (Losartan-hydrochlorothiazide) ..... Take 1 tablet by mouth once a day Jennifer Cowart MEDICAL CLAIMS ASSISTANT Cardiology: H is updated medication list for this problem includes: Simvastatin 20 Mg Tablet (Simvastatin) Dyllan Tate MD Cardiology:had echo and stress done had high bp on stress Dyllan Tate MD Cardiology: R eports that he has drinking a lot of energy drinks. B P elevated in office today but he states that it is well controlled at other office visit SBP 120s D iscussed need to monitor BP at home and keep record M onitor dietary intake of sodium W ill check echo to assess structure and function and stress test for risk stratification. August 25, 2023 h e eats a lot of canned premade food and chili etc and he had bp elevated will add losartn/hct 50/12.5 T he following medications were removed from the medication list: Losartan 25 Mg Tablet (Losartan) H is updated medication list for this problem includes: Losartan-hydrochlorothiazide 50-12.5 Mg Tablet (Losartan-hydrochlorothiazide) ..... Take 1 tablet by mouth once a day Dyllan Tate MD Cardiology: W ill check echo to assess structure and function and stress test for risk stratification. Milagros Ye NP Cardiology: o n tadalafil Milagros Ye NP Cardiology: W ill get labs from PCP H is updated medication list for this problem includes: Simvastatin 20 Mg Tablet (Simvastatin) Milagros Ye NP Cardiology: R eports that he has drinking a lot of energy drinks. B P elevated in office today but he states that it is well controlled at other office visit SBP 120s D iscussed need to monitor BP at home and keep record M onitor dietary intake of sodium W ill check echo to assess structure and function and stress test for risk stratification. Milagros Ye NP Date Name LIPID PANEL EKG Stress Routine Complete Echo HISTORY OF PROCEDURES Procedure Date Procedure Name Provider Procedure Notes S tatus EKG Dyllan Tate MD compl eted THOMAS Tate MD compl eted
== END 2024-08-11 09:43 | disposition home or self-care (01) ==
PROVIDERS: PCP Emergency Medicine; Visit Provider Emergency Medicine
DX: M54.50 Low back pain, unspecified (principal)
CPT/HCPCS: 72100

== ENCOUNTER 2024-08-16 10:10 | Outpatient (CLI) | payer OTHER, SELFPAY ==
--- NOTE | ~2024-08-16 | XR_ITS ---
XR hip RT min 2V Ordering provider: Andrea Bowling MD History: . R HIP PAIN, NKI . Comparison: None. FINDINGS: BONES: No acute fracture or dislocation. HIP JOINT SPACES: Normal. SACROILIAC JOINT SPACES/LUMBAR SPINE: The sacroiliac joint spaces shows sacroiliitis. Mild degenerati ve changes of the visualized lower lumbar spine. PUBIC SYMPHYSIS: Normal. SOFT TISSUES: Normal. IMPRESSION: No acute osseous abnormality pelvis and right hip. Reviewed, dictated and finalized at location A.
--- OUTSIDE RECORDS SUMMARY | 2024-08-16 10:19 | XMS_ITS | Referral Summary ---
Author Organization [facility] Address [address] [place] [id number] Care Team Providers Care Dietary Clerk Name Role Phone Andrea Bowling MD Primary Care Provider [phone] Medications tamsulosin (FLOMAX) 0.4 mg extended release [...] Plan of Treatment Not on file Insurance [facility] Care Teams Dietary Clerk Relationship Specialty Start Date End Date Andrea Bowling MD PCP - General Emergency Medicine 12/25/22
--- OUTSIDE RECORDS SUMMARY | 2024-08-16 10:19 | XMS_ITS | CONTINUITY OF CARE DOCUMENT ---
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 New patient consultation active Milagros herbert 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 Hypertension active Milagros De Los Santosri 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 Hyperlipidemia active Milagros Ye 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 Erectile dysfunction active Milagros De Los Santosri 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 Screening active Milagros Ye 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 ENCOUNTERS Date Type Provider Location Encounter Diag nosis 11/04 - 11/13 In-person encounter Office Visit Dyllan Tate MD [facility] 08/24 - 08/27 In-person encounter Office Visit Dyllan Tate MD [facility] 07/24 - 07/29 In-person encounter Office Visit Dyllan Tate MD [facility] Cardiology examinationNew patient consultationHypertensionHyperlipidemiaErectile dysfunctionScreening VITAL [...] 1 CAPSULE BY MOUTH WEEKLY Jennifer Ventimiglia TYING IN MACHINE OPERATOR losartan-hydrochl orothiazide 50-12.5 mg tablet active TAKE 1 TABLET BY MOUTH EVERY DAY Jennifer Ventimiglia TYING IN MACHINE OPERATOR simvastatin 20 mg tablet active TAKE 1 TABLET BY MOUTH EVERY DAY Jennifer Ventimiglia TYING IN MACHINE OPERATOR tadalafil 5 mg tablet active Take 1 tablet by mouth daily. Jennifer Ventimiglia TYING IN MACHINE OPERATOR losartan-hydrochl orothiazide 50-12.5 mg tablet completed Take 1 tablet by mouth once a day - Jennifer Ventimiglia TYING IN MACHINE OPERATOR tamsulosin 0.4 mg capsule active [facility] nitrofurantoin monohyd/m-cryst 100 mg capsule completed - Jennifer Ventimiglia TYING IN MACHINE OPERATOR tadalafil 5 mg tablet completed TAKE 1 TABLET BY MOUTH ONCE DAILY - Jennifer Ventimiglia TYING IN MACHINE OPERATOR simvastatin 20 mg tablet completed - Jennifer Ventimiglia TYING IN MACHINE OPERATOR ergocalciferol (vitamin D2) 1,250 mcg (50,000 unit) capsule completed - Jennifer Ventimiglia TYING IN MACHINE OPERATOR losartan 25 mg tablet completed - Dyllan Tate MD SOCIAL HISTORY Date Observation Value Provider personal history of marijuana use no Jennifer Ventimiglia TYING IN MACHINE OPERATOR drug use no Jennifer Murrayg rocky [facility] alcohol use, average drinks per day social Jennifer Murrayglia [facility] alcohol use yes Jennifer Murrayg rocky [facility] smoking status Never smoker Jennifer hilton [facility] number of grandchildren Dyllan Tate MD personal [...] average drinks per day social Milagros Ye 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 alcohol use yes Mandieisauro Ye NP smoking status Never smoker Milagros Valverde i 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 INSURANCE PROVIDERS Payer name Policy type / Coverage type [facility] green party ID [id number] MEDICAID Medicaid [id number] ADVANCE DIRECTIVES Name Date DISCUSSED - NO DECISION MADE TREATMENT PLAN Date Name Performer Cardiology Jennifer Dorantes ia [facility] Cardiology:LDL 178 l ast labs T his visit has been a part of the consistent, comprehensive, and ongoing management of the chronic medical condition(s) listed above for the patient. His updated medication list for this problem includes: Simvastatin 20 Mg Tablet (Simvastatin) Jennifer Cowart [facility] Cardiology:BP today 132/80 l ast OV 151/104 [...] by mouth once a day Jennifer Cowart TYING IN MACHINE OPERATOR Cardiology: H is updated medication list for [...]
--- OUTSIDE RECORDS SUMMARY | 2024-08-16 10:19 | XMS_ITS | Clinical Summary ---
Author Organization [facility] Address [address] [place] [address] Phone Care Team Providers Care Medical Artist Name Role Phone Provider, None Primary Care [...] to complete this topic Insurance MEDICAID AETNA [facility] Care Teams Medical Artist Relationship Specialty Start Date End Date Provider, None [place] PCP - General 06/15/18
--- OUTSIDE RECORDS SUMMARY | 2024-08-16 10:19 | XMS_ITS | Clinical Summary ---
Author Organization [facility] Address [address] [place] [id number] Care Team Providers Care Cycle Specialist Name Role Phone Andrea Bowling MD Primary Care Provider [phone] Medications tamsulosin (FLOMAX) 0.4 mg extended release [...] patient's age to complete this topic Insurance [facility] Care Teams Cycle Specialist Relationship Specialty Start Date End Date Andrea Bowling MD PCP - General Emergency Medicine 12/25/22
== END 2024-08-16 10:11 | disposition home or self-care (01) ==
PROVIDERS: PCP Emergency Medicine; Visit Provider Emergency Medicine
DX: M25.551 Pain in right hip (principal)
CPT/HCPCS: 73502